=== PATIENT | female | born 1985 | race Hispanic/Latino ===

== ENCOUNTER 2020-08-13 10:19 | Emergency (ER) | payer BC, MEDICAID ==
[~2020-08-13] VITALS: Ht 157.5 cm; Wt 70.3 kg
[2020-08-13 10:29] VITALS: BP 116/61
[2020-08-13] MEDS ORDERED: METH-662 PO (12:12)
== END 2020-08-13 12:27 | disposition home or self-care (01) ==
LOC: EDH 10:19
DX: S16.1XXA Strain of muscle, fascia and tendon at neck level, initial encounter (principal); S50.02XA Contusion of left elbow, initial encounter; M54.9 Dorsalgia, unspecified; I10 Essential (primary) hypertension; V49.3XXA Car occupant (driver) (passenger) injured in unspecified nontraffic accident, initial encounter; Y93.89 Activity, other specified; Y92.89 Other specified places as the place of occurrence of the external cause; Y99.8 Other external cause status
CPT/HCPCS: 72040; 73070